=== PATIENT | female | born 1965 | race Caucasian/White ===

== ENCOUNTER 2016-10-22 20:56 | Emergency (ER) | payer MEDICARE ==
[~2016-10-22] VITALS: Ht 160 cm; Wt 68.0 kg
[2016-10-22 20:58] VITALS: BP 120/86; PULSE 102; RESP 16; TEMP 98; O2SAT 94
[2016-10-22] MEDS ORDERED: SULFAMETHOXAZOLE-TRIMETHOPRIM DS 800-160 MG TAB PO ONE (21:15)
[2016-10-22] MEDS ORDERED: CEPHALEXIN MONOHYDRATE 500 MG CAP PO ONE (21:15)
[2016-10-22] MEDS ORDERED: predniSONE 20 MG TAB PO ONE (21:15)
[2016-10-22] MEDS ORDERED: diphenhydrAMINE HCL 50 MG CAP PO ONE (21:15)
[2016-10-22] MEDS ORDERED: BACT800T5 PO (21:16)
[2016-10-22] MEDS ORDERED: CEPH-460 PO (21:16)
[2016-10-22] MEDS ORDERED: PRED-503 PO (21:16)
--- NOTE | 2016-10-22 21:21 | PD ---
HPI Chief Complaint: Bite or Sting Time Seen by Provider: 21:16 Travel History International Travel<30 days: No Contact w/Intl Traveler<30days: No Traveled to known affect area: No History of Present Illness HPI 51-year-old white female presents to emergency department for evaluation of a bee sting to the posterior right thigh. [place] She states that the area has become increasingly painful, red and swollen. She is concerned that she may be getting a secondary infection. 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 She also states that she has a decreased immune system. She denies any fever chills. No drainage. She states that she feels that she is up-to-date with immunizations. PFSH Past Medical History Narrative Medical Breast cancer survivor, MRSA Diminished Hearing: No Tetanus Vaccination: < 5 Years Influenza Vaccination: No ?: Not Past Surgical History Narrative Surgical Bilateral mastectomy, breast reconstruction, oophorectomy Social History Alcohol Use: Yes Tobacco Use: Yes Substance Use: No Allergies-Medications (Allergen,Severity, Reaction): Coded Allergies: Bactrim (Verified Allergy, Unknown, Rash, 10/22/16) Reported Meds & Prescriptions Reported Meds & Active Scripts Active Deltasone (Prednisone) 20 Mg Tab 20 Mg PO BID Bactrim DS (Sulfamethoxazole-Trimethoprim) 800-160 Mg Tab 1 Tab PO BID Keflex (Cephalexin) 500 Mg Cap 500 Mg PO Q6H Review of Systems Except as stated in HPI: all other systems reviewed are Neg General / Constitutional: No: Fever, Chills Eyes: No: Blurred Vision, Photophobia HENT: No: Vertigo, Lightheadedness Cardiovascular: No: Chest Pain or Discomfort, Palpitations Respiratory: No: Cough, Shortness of Breath Gastrointestinal: No: Nausea, Vomiting Genitourinary: No: Frequency, Dysuria Musculoskeletal: Positive: Edema, Pain Skin: Positive Rash, Positive Itching Physical Exam Narrative GENERAL: This is a well-nourished, well-developed patient, in no apparent distress. SKIN: Patient has a 6 x 6 area of erythema, warmth and induration to the posterior right thigh. Patient has no pointing or fluctuance. No lymphangitic streaking. HEENT: Normocephalic/atraumatic EYES: PERRL, EOMI, no discharge or injection. No scleral icterus. EARS: Clear NOSE: Nasal turbinates appear normal. THROAT: Mucosa pink and moist. Airway patent. NECK: Trachea midline. supple, moves head freely. LUNGS: Clear to auscultation. CV: Regular in rhythm. ABDOMEN: Soft nontender. EXT: No clubbing cyanosis or edema. Data Data Last Documented VS Vital Signs Date Time Temp Pulse Resp B/P Pulse Ox O2 Delivery O2 Flow Rate FiO2 10/22/16 21:02 16 10/22/16 20:58 98.0 102 120/86 94 Room Air Orders Cephalexin (Keflex) (10/22/16 21:15) Sulfamet-Trimeth Ds 800-160 Mg (Bactrim (10/22/16 21:15) Prednisone (Deltasone) (10/22/16 21:15) Diphenhydramine (Benadryl) (10/22/16 21:15) Clindamycin (Cleocin) (10/22/16 22:00) MDM Medical Decision Making Medical Screen Exam Complete: Yes Emergency Medical Condition: Yes Medical Record Reviewed: Yes Differential Diagnosis MDM: High Differential diagnoses: Abscess, folliculitis, cellulitis, lymphangitis, abrasion, contact dermatitis Narrative Course Patient appears have an insect bite with local reaction. The patient is concerned this may be getting secondarily infected. She'll be treated with 60 no aggressive prednisone, Benadryl 50 mg by mouth, Bactrim DS and Keflex 1 g by mouth. I suspect this is mostly a insect bite with local reaction with due to her history of skin infections and low immune system she'll be covered with antibiotics. This is insect bite with local reaction, cellulitis Now at time of discharge the patient now realizes that she is allergic to Bactrim/sulfa. The Bactrim is canceled and the patient is given clindamycin 300 mg by mouth. Diagnosis Primary Impression: iNSECT BITE WITH LOCAL REACTION Additional Impression: Cellulitis of right thigh Patient Instructions: General Instructions Additional Instructions: Rest. Daily wound care with soap and water. Warm compresses. Keflex, clindamycin and prednisone. Take 50 g of Benadryl 4 times daily for the next 1-2 days. Recheck with a primary care doctor in 48 hours. Return to the ER for any problems. Med/Other Pt SpecificInfo: Prescription(s) given, Wound Care Scripts Clindamycin (Cleocin)150 Mg [id number] Mg PO Q6H #56 CAP Prov:Phyllis Miller MD 10/22/16 Prednisone (Deltasone)20 Mg Tab20 Mg PO BID #6 TAB Prov:Phyllis Miller MD 10/22/16 Cephalexin (Keflex)500 Mg [id number] Mg PO Q6H #28 CAP Prov:Phyllis Miller MD 10/22/16 Disposition: 01 DISCHARGE HOME Condition: Stable Julio Cesar Sotelo Oct 22, 2016 21:21
[2016-10-22] MEDS ORDERED: CLIN150 PO (21:56)
[2016-10-22] MEDS ORDERED: CLINDAMYCIN 150 MG CAP PO ONE (22:00)
== END 2016-10-22 22:10 | disposition home or self-care (01) ==
LOC: NEPB 20:56
DX: T63.441A Toxic effect of venom of bees, accidental (unintentional), initial encounter (principal); L03.115 Cellulitis of right lower limb; W57.XXXA Bitten or stung by nonvenomous insect and other nonvenomous arthropods, initial encounter; Y92.832 Beach as the place of occurrence of the external cause; Z72.0 Tobacco use
CPT/HCPCS: 99282; J7512; Q0163

== ENCOUNTER 2016-11-05 07:38 | Day surgery (SDC) | payer MEDICARE ==
[~2016-11-05] VITALS: Ht 160 cm; Wt 65.9 kg
[~2016-11-05 07:38] MED LIST: CEPH-460 PO; CLIN150 PO; PRED-503 PO
[2016-11-05 07:56] VITALS: BP 122/75; PULSE 69; RESP 20; TEMP 98.1; O2SAT 98
[2016-11-05] MEDS ORDERED: FLUT1SPR5 EACH NARE (08:34)
[2016-11-05] MEDS ORDERED: ZYRT10CA PO (08:34)
[2016-11-05] MEDS ORDERED: ADDE30TA PO (08:34)
[2016-11-05] MEDS ORDERED: KLON2TAB PO (08:34)
[2016-11-05] MEDS ORDERED: LAMO100 PO (08:34)
[2016-11-05] MEDS ORDERED: ZOLO100T PO (08:34)
[2016-11-05] MEDS ORDERED: GABA100C4 PO (08:34)
[2016-11-05] MEDS ORDERED: SODIUM CHLOR 0.9% 1000 ML INJ 1,000 ML IV SCH (08:45)
[2016-11-05 09:43] LABS: AUTOMATED NEUTROPHIL # 6.1 TH/MM3 (1.8-7.7); BASOPHIL # 0.1 TH/MM3 (0-0.2); BASOPHIL % 0.6 % (0.0-2.0); EOSINOPHIL # 0.3 TH/MM3 (0-0.4); EOSINOPHIL % 2.8 % (0.0-4.0); HEMATOCRIT 41.6 % (35.0-46.0); HEMO FLAGS DIFF FINAL; LYMPH % 25.4 % (9.0-44.0); LYMPHOCYTE # 2.4 TH/MM3 (1.0-4.8); MEAN CELL VOLUME 95.8 FL (80.0-100.0); MEAN CORPUSCULAR HGB CONC 33.4 % (32.0-36.0); MONO % 5.9 % (0.0-8.0); NEUT % 65.3 % (16.0-70.0); PLATELET COUNT 241 TH/MM3 (150-450); RED BLOOD COUNT 4.34 MIL/MM3 (4.00-5.30); RED CELL DISTRIBUTION WIDTH 13.9 % (11.6-17.2); WHITE BLOOD COUNT 9.4 TH/MM3 (4.0-11.0)
[2016-11-05] MEDS ORDERED: LORazepam 2 MG/ML VIAL ONE (10:41)
[2016-11-05] MEDS ORDERED: MIDAZOLAM HCL 2 MG/2 ML VIAL ONE (10:52)
[2016-11-05 11:10] VITALS: BP 118/77; PULSE 59; RESP 18; TEMP 98; O2SAT 95
--- NOTE | 2016-11-05 11:14 | PD.RAD ---
Post Procedure Progress Note Pre Procedure Diagnosis: (1) Difficulty with speech (2) Blurred vision, bilateral Post Procedure Diagnosis: (1) Difficulty with speech (2) Blurred vision, bilateral Procedure Date: Nov 05, 2016 Supervising Radiologist: Paul Anne Anesthesia: Local, Conscious Sedation Plan of Activity Patient to Unit: ROPU Patient Condition: Good Additional Comments: LP completed without difficulty single puncture at L3/L4 23 cc of clear CSF removed See PACS Report for procedural detail/treatment Paul Anne MD Nov 05, 2016 11:13
[2016-11-05 12:45] LABS: GROSS BLOOD TUBE #1 0 (0); SUPERNATE COLOR TUBE #1 CLEAR (CLEAR); VOLUME TUBE # 1 4.7 ML
[2016-11-05 12:46] LABS: CSF LYMPHOCYTES 0 %; CSF NEUTROPHILS 0 %; GROSS BLOOD TUBE #2 0 (0); GROSS BLOOD TUBE #3 0 (0); GROSS BLOOD TUBE #4 0 (0); SUPERNATE COLOR TUBE #2 CLEAR (CLEAR); SUPERNATE COLOR TUBE #3 CLEAR (CLEAR); SUPERNATE COLOR TUBE #4 CLEAR (CLEAR); VOLUME TUBE # 2 5.8 ML; VOLUME TUBE # 3 5.2 ML; VOLUME TUBE # 4 6.9 ML; WBC TUBE #4 0 /MM3 (0-10)
[2016-11-05 13:25] VITALS: BP 114/60; PULSE 93; RESP 16; O2SAT 96
--- NOTE | 2016-11-05 16:20 | RADRPT ---
EXAM DATE/TIME: 11/05/2016 11:01 [facility] COMPARISON: No previous studies available for comparison. INDICATIONS : Patient with blurry vision, and difficulty speaking in need of lumbar puncture. MEDICAL HISTORY : Breast cancer PTSD Panick attachs ADD MS Spondylosis SURGICAL HISTORY : Double mastectomy Breast augmentation ENCOUNTER: Initial ACUITY: 1 year PAIN SCORE: 0/10 LUMBAR PUNCTURE TIME: 1052 hours FLUORO TIME: 0.25 minutes SEDATION TIME: 30 minutes ACCESS LEVEL: L3-4 FLUID: 23 cc of clear CSF was collected and sent to the laboratory for analysis. SEDATION: 1.) 2 mcg midazolam (Versed) IV 2.) 100 mg fentanyl (Sublimaze) IV PROCEDURE : 1. Fluoroscopic guided lumbar puncture. The risks, benefits and alternatives to the procedure were explained and verbal and written consent w as obtained. The site was prepped in sterile fashion. Full sterile technique was used, including ca p, mask, sterile gloves and gown and a large sterile sheet. Hand hygiene and 2% chlorhexidine and/or betadine/alcohol prep was utilized per protocol for cutaneous antisepsis. The skin and subcutaneous tissues were infiltrated with local anesthetic solution. With fluoroscopic guidance the lumbar thecal sac was punctured at the level above. The fluid describ ed above was removed without difficulty. The patient tolerated the procedure well and there were no complications. CONCLUSION: Uncomplicated fluoroscopically guided lumbar puncture. Paul Anne MD on November 05, 2016 at 16:19 Board Certified Radiologist. This report was verified electronically.
[2016-11-06 17:06] LABS: ALBUMIN SERUM 4540 mg/dL (3200 - 4800); IGG SERUM 732 mg/dL (767 - 1590); IGG/ALBUMIN CSF 0.08 (<=0.21); IGG/ALBUMIN SERUM 0.16 (<=0.40); OLIGOCLONAL BANDING CSF 7 bands (()); OLIGOCLONAL BANDING INTERPRET 0 bands (<4); OLIGOCLONAL BANDING SERUM 7 bands (())
[2016-11-07 16:49] LABS: LYME IGG IMMUNOBLOT CSF None Detected bands (None Detected); LYME IGM IMMUNOBLOT CSF None Detected bands (None Detected)
[2016-11-07 19:53] LABS: VDRL CSF NON-REACTIVE (())
[2016-11-08 11:37] LABS: CSF CRYPTOCOCCUS AG CONF ND (NOT DETECTD)
== END 2016-11-05 13:50 | disposition home or self-care (01) ==
LOC: HROP 07:38 → HRIP 07:48 → HROP 13:50
PROVIDERS: ATTEND Psychiatry & Neurology Neurology
DX: H53.8 Other visual disturbances (principal); G35 Multiple sclerosis; F43.10 Post-traumatic stress disorder, unspecified; M47.9 Spondylosis, unspecified; Z85.3 Personal history of malignant neoplasm of breast
CPT/HCPCS: 62270; 77003; 82040; 82042; 82784; 82945; 83873; 83916; 84157; 85025; 86403; 86592; 86618; 87015; 87070; 87102; 87116; 87205; 87206; 89051; 99152; 99153; J2060; J2250; J3010; J7030

== ENCOUNTER 2017-07-02 19:32 | Emergency (ER) | payer MEDICARE ==
[~2017-07-02] VITALS: Ht 160 cm; Wt 63.4 kg
[~2017-07-02 19:32] MED LIST changes: +ADDE30TA PO; -CEPH-460 PO; -CLIN150 PO; +FLUT1SPR5 EACH NARE; +GABA100C4 PO; +KLON2TAB PO; +LAMO100 PO; -PRED-503 PO; +ZOLO100T PO; +ZYRT10CA PO
[2017-07-02 19:40] VITALS: BP 166/93; PULSE 115; RESP 18; TEMP 98.8; O2SAT 95
[2017-07-02] MEDS ORDERED: CETI10 PO (19:54)
[2017-07-02] MEDS ORDERED: CALC1TAB12 PO (19:54)
[2017-07-02] MEDS ORDERED: MAG-TAB PO (19:54)
[2017-07-02] MEDS ORDERED: MAGN100T2 PO (19:54)
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
[2017-07-02] MEDS ORDERED: TETANUS/DIPHTHERIA TOXOID ADULT 0.5 ML VIAL IM ONE (20:30)
[2017-07-02] MEDS ORDERED: LIDOCAINE HCL 1% 50 ML VIAL INFIL ONE (20:30)
== END 2017-07-02 20:37 | disposition home or self-care (01) ==
LOC: PHEFT 19:32
DX: S81.812A Laceration without foreign body, left lower leg, initial encounter (principal); Y08.89XA Assault by other specified means, initial encounter; Z23 Encounter for immunization
CPT/HCPCS: 12002; 90471; 90714

== ENCOUNTER 2018-01-30 12:35 | Emergency (ER) | payer MEDICARE ==
[~2018-01-30] VITALS: Ht 160 cm; Wt 62.0 kg
[~2018-01-30 12:35] MED LIST changes: +CALC1TAB12 PO; +CETI10 PO; -FLUT1SPR5 EACH NARE; +MAG-TAB PO; -ZYRT10CA PO
[2018-01-30 12:38] VITALS: BP 137/92; PULSE 114; RESP 16; TEMP 98.9; O2SAT 98
--- NOTE | 2018-01-30 12:52 | PD ---
HPI Chief Complaint: General Weakness Time Seen by Provider: 12:52 Travel History International Travel<30 days: No Contact w/Intl Traveler<30days: No Traveled to known affect area: No History of Present Illness HPI Patient is 52 years old. She complains of palpitations for 1 week. She also describes difficulty with concentration. She feels as though she is "walking on egg shells." She thought it might have been allergies. She follows with ENT and has a right tympanostomy. She is taking Zyrtec and has done so for 3 years. She recently finished a course of antibiotics for urinary tract infection and acute otitis media. She recently started Cipro for sinusitis diagnosis. Last menstruation was 5 years ago. She states he just cannot concentrate. No urinary complaints. No change in medications other than the Cipro. No change in diet or lifestyle. No chest pain or shortness of breath. Patient has history of depression and anxiety. The patient drinks alcohol occasionally. She smokes 1 pack per day. PFSH Past Medical History Depression: Yes Cancer: Yes (breast) Cardiovascular Problems: No Diabetes: No Diminished Hearing: No Endocrine: No Genitourinary: No Hepatitis: No Hiatal Hernia: No Immune Disorder: No Musculoskeletal: Yes (djd) Neurologic: No Psychiatric: Yes (depression, anxiety) Reproductive: No Respiratory: No Immunizations Current: No Thyroid Disease: No Past Surgical History Abdominal Surgery: No AICD: No Cardiac Surgery: No Ear Surgery: No Endocrine Surgery: No Eye Surgery: No Genitourinary Surgery: No Gynecologic Surgery: Yes (ovaries, omentum) Joint Replacement: No Mastectomy: Yes (WITH RECONSTRUCTION) Oral Surgery: No Pacemaker: No Thoracic Surgery: Yes (double mastectomy) Other Surgery: Yes Social History Alcohol Use: Yes (OCC) Tobacco Use: Yes (1 PK) Substance Use: No Allergies-Medications (Allergen,Severity, Reaction): Coded Allergies: penicillin G (Unverified Allergy, Severe, rash, 01/30/18) "feels like body is on fire" sulfamethoxazole (Unverified Allergy, Severe, Rash, 01/30/18) "feels like my body is on fire" trimethoprim (Unverified Allergy, Severe, Rash, 01/30/18) "feels like my body is on fire" latex (Unverified Allergy, Intermediate, rash, 01/30/18) Reported Meds & Prescriptions Reported Meds & Active Scripts Active Reported Adderall (Amphetamine-Dextroamphetamine) 15 Mg Tab 15 Mg PO BID Avoid late evening doses. Space doses at least 4 to 6 hours if more than once/day dosing. Zyrtec (Cetirizine HCl) 10 Mg Capsule 10 Mg DAILY Lamictal (Lamotrigine) 100 Mg Tab 100 Mg PO DAILY Zoloft (Sertraline HCl) 100 Mg Tab 200 Mg PO DAILY Cipro (Ciprofloxacin HCl) 500 Mg Tab 500 Mg PO BID Review of Systems Except as stated in HPI: all other systems reviewed are Neg General / Constitutional: No: Fever Physical Exam Narrative GENERAL: 52-year-old female pleasant well-nourished well-developed no acute distress Vital Signs Date Time Temp Pulse Resp B/P (MAP) Pulse Ox O2 Delivery O2 Flow Rate FiO2 01/30/18 12:38 98.9 114 16 137/92 (107) 98 SKIN: Warm and dry. HEAD: Atraumatic. Normocephalic. EYES: Pupils equal and round. No scleral icterus. No injection or drainage. ENT: No nasal bleeding or discharge. Mucous membranes pink and moist. NECK: Trachea midline. No JVD. CARDIOVASCULAR: Regular rate and rhythm. RESPIRATORY: No accessory muscle use. Clear to auscultation. Breath sounds equal bilaterally. GASTROINTESTINAL: Abdomen soft, non-tender, nondistended. Hepatic and splenic margins not palpable. MUSCULOSKELETAL: Extremities without clubbing, cyanosis, or edema. No obvious deformities. NEUROLOGICAL: Awake and alert. No obvious cranial nerve deficits. Motor grossly within normal limits. Five out of 5 muscle strength in the arms and legs. Normal speech. PSYCHIATRIC: Appropriate mood and affect; insight and judgment normal. Data Data Last Documented VS Vital Signs Date Time Temp Pulse Resp B/P (MAP) Pulse Ox O2 Delivery O2 Flow Rate FiO2 01/30/18 13:05 98 Room Air 01/30/18 12:38 98.9 114 16 137/92 (107) Orders Orders Electrocardiogram (01/30/18 13:01) Complete Blood Count With Diff (01/30/18 13:01) Comprehensive Metabolic Panel (01/30/18 13:01) Troponin I (01/30/18 13:01) Thyroid Stimulating Hormone (01/30/18 13:01) Urinalysis - C+S If Indicated (01/30/18 13:01) Chest, Single Ap (01/30/18 13:01) Ct Brain W/O Iv Contrast(Rout) (01/30/18 13:01) Ecg Monitoring (01/30/18 13:01) Iv Access Insert/Monitor (01/30/18 13:01) Oximetry (01/30/18 13:01) Sodium Chloride 0.9% Flush (Ns Flush) (01/30/18 13:15) Sodium Chlor 0.9% 1000 Ml Inj (Ns 1000 M (01/30/18 13:01) Drug Screen, Random Urine (01/30/18 13:01) Ed Discharge Order (01/30/18 13:46) Labs Laboratory Tests Test 01/30/18 13:00 White Blood Count 8.4 TH/MM3 Red Blood Count 4.57 MIL/MM3 Hemoglobin 14.8 GM/DL Hematocrit 42.4 % Mean Corpuscular Volume 92.7 FL Mean Corpuscular Hemoglobin 32.3 PG Mean Corpuscular Hemoglobin Concent 34.8 % Red Cell Distribution Width 12.6 % Platelet Count 304 TH/MM3 Mean Platelet Volume 8.2 FL Neutrophils (%) (Auto) 62.4 % Lymphocytes (%) (Auto) 31.8 % Monocytes (%) (Auto) 4.3 % Eosinophils (%) (Auto) 0.8 % Basophils (%) (Auto) 0.7 % Neutrophils # (Auto) 5.1 TH/MM3 Lymphocytes # (Auto) 2.7 TH/MM3 Monocytes # (Auto) 0.4 TH/MM3 Eosinophils # (Auto) 0.1 TH/MM3 Basophils # (Auto) 0.1 TH/MM3 CBC Comment DIFF FINAL Differential Comment Urine Collection Type CLEAN CATCH Urine Color YELLOW Urine Turbidity CLEAR Urine pH 5.0 Urine Specific [place] LESS/EQUAL 1.005 Urine Protein NEG mg/dL Urine Glucose (UA) NEG mg/dL Urine Ketones NEG mg/dL Urine Occult Blood SMALL Urine Nitrite NEG Urine Bilirubin NEG Urine Urobilinogen 0.2 MG/DL Urine Leukocyte Esterase NEG Urine RBC 0-3 /hpf Urine Squamous Epithelial Cells 0-5 /hpf Microscopic Urinalysis Comment CULT NOT INDICATED Urine Collection Time 13:00 Blood Urea Nitrogen 15 MG/DL Creatinine 0.64 MG/DL Random Glucose 103 MG/DL Total Protein 7.7 GM/DL Albumin 4.2 GM/DL Calcium Level 9.5 MG/DL Alkaline Phosphatase 68 U/L Aspartate Amino Transf (AST/SGOT) 19 U/L Alanine Aminotransferase (ALT/SGPT) 25 U/L Total Bilirubin 0.4 MG/DL Sodium Level 137 MEQ/L Potassium Level 3.5 MEQ/L Chloride Level 105 MEQ/L Carbon Dioxide Level 24.3 MEQ/L Anion Gap 8 MEQ/L Estimat Glomerular Filtration Rate 98 ML/MIN Troponin I LESS THAN 0.02 NG/ML Thyroid Stimulating Hormone 3rd Gen 0.644 uIU/ML Urine Opiates Screen NEG Urine Barbiturates Screen NEG Urine Amphetamines Screen POS Urine Benzodiazepines Screen NEG Urine Cocaine Screen NEG Urine Cannabinoids Screen NEG MDM Medical Decision Making Medical Screen Exam Complete: Yes Emergency Medical Condition: Yes Medical Record Reviewed: Yes Differential Diagnosis Anemia, thyroid disease, UTI, medication side effect, somatic symptoms, depression/anxiety Narrative Course CBC & BMP Diagram 01/30/18 13:00 Total Protein 7.7, Albumin 4.2, Calcium Level 9.5, Alkaline Phosphatase 68, Aspartate Amino Transf (AST/SGOT) 19, Alanine Aminotransferase (ALT/SGPT) 25, Total Bilirubin 0.[address] 01/30/18 1301 Signed Impressions: CONCLUSION: 1. No acute intracranial abnormality. Chest X-Ray 01/30/18 1301 Signed Impressions: CONCLUSION: No active disease. EKG shows a sinus rhythm with a rate of 99, no ischemic injury pattern or preexcitation pattern The patient is resting comfortably and feels better, is alert and in no distress. The patients results and examination findings were discussed. The repeat examination is unremarkable and benign. The history, exam, diagnostic testing, and current condition do not suggest any significant pathology to warrant further testing, continued ED treatment, admission, or surgical evaluation at this point. The vital signs have been stable. The patient does not have uncontrollable pain, intractable vomiting, or other significant symptoms. The patient's condition is stable and appropriate for discharge. The patient will pursue further outpatient evaluation with a primary care physician or other designated or consulting physician as indicated in the discharge instructions. The patient expressed understanding and was agreeable with this plan. Diagnosis Primary Impression: Palpitations Additional Impression: Confusion Referrals: Primary Care Physician call for appointment Med/Other Pt SpecificInfo: No Change to Meds Disposition: DISCHARGE HOME Condition: Stable Paul Weiner MD January 30, 2018 12:52
[2018-01-30] MEDS ORDERED: CIPR-9 PO (12:58)
[2018-01-30] MEDS ORDERED: CETI10CA3 (12:58)
[2018-01-30] MEDS ORDERED: ADDE15TA PO (12:58)
[2018-01-30] MEDS ORDERED: ZOLO100T PO (12:58)
[2018-01-30] MEDS ORDERED: LAMO100 PO (12:58)
[2018-01-30] MEDS ORDERED: SODIUM CHLOR 0.9% 1000 ML INJ 1,000 ML IV SCH (13:01)
[2018-01-30 13:05] VITALS: O2SAT 98
[2018-01-30 13:13] LABS: BILIRUBIN, URINE NEG (NEG); BLOOD, URINE SMALL (NEG); GLUCOSE,URINE NEG (NEG); KETONE, URINE NEG (NEG); NITRITE,URINE NEG (NEG); URINE COLOR YELLOW (YELLW/STRAW); URINE LEUKOCYTE ESTERASE NEG (NEG)
[2018-01-30 13:15] LABS: AUTOMATED NEUTROPHIL # 5.1 TH/MM3 (1.8-7.7); BASOPHIL # 0.1 TH/MM3 (0-0.2); BASOPHIL % 0.7 % (0.0-2.0); EOSINOPHIL # 0.1 TH/MM3 (0-0.4); EOSINOPHIL % 0.8 % (0.0-4.0); HEMATOCRIT 42.4 % (35.0-46.0); HEMOGLOBIN 14.8 GM/DL (11.6-15.3); LYMPH % 31.8 % (9.0-44.0); LYMPHOCYTE # 2.7 TH/MM3 (1.0-4.8); MEAN CELL VOLUME 92.7 FL (80.0-100.0); MEAN CORPUSCULAR HEMOGLOBIN 32.3 PG (27.0-34.0); MEAN CORPUSCULAR HGB CONC 34.8 % (32.0-36.0); MEAN PLATELET VOLUME 8.2 FL (7.0-11.0); MONO % 4.3 % (0.0-8.0); MONOCYTE # 0.4 TH/MM3 (0-0.9); NEUT % 62.4 % (16.0-70.0); PLATELET COUNT 304 TH/MM3 (150-450); RED BLOOD COUNT 4.57 MIL/MM3 (4.00-5.30); RED CELL DISTRIBUTION WIDTH 12.6 % (11.6-17.2); WHITE BLOOD COUNT 8.4 TH/MM3 (4.0-11.0)
[2018-01-30] MEDS ORDERED: SODIUM CHLORIDE 0.9% FLUSH 10 ML FLUSH IV FLUSH PRN (13:15)
[2018-01-30 13:20] LABS: RBC, URINE 0-3 /hpf (0-3); SQUAMOUS EPITHELIAL CELL URINE 0-5 /hpf (0-5)
[2018-01-30 13:21] LABS: CHLORIDE 105 MEQ/L (98-107); SODIUM (NA) 137 MEQ/L (136-145)
--- NOTE | 2018-01-30 13:23 | RADRPT ---
EXAM DATE: 01/30/2018 1:17 PM EDT AGE/SEX: 52 years / Female INDICATIONS: Heart palpitations. CLINICAL DATA: This is the patient's initial encounter. Patient reports that signs and symptoms have been present for 1 week and indicates a pain score of 0/10. MEDICAL/SURGICAL HISTORY: Carcinoma, breast. Fibroids. Mastectomy, bilateral. Ovaries removed. COMPARISON: No prior [facility] exams available for comparison. FINDINGS: A single AP view of the chest demonstrates the lungs to be symmetrically aerated without evidence of mass, infiltrate or effusion. The cardiomediastinal contours are unremarkable. Osseous structures a re intact. Previous breast augmentation. CONCLUSION: No active disease. Electronically signed by: Julio Cesar Montana MD 01/30/2018 1:21 PM EDT
[2018-01-30 13:24] LABS: CALCIUM 9.5 MG/DL (8.5-10.1)
[2018-01-30 13:25] LABS: ALBUMIN 4.2 GM/DL (3.4-5.0); BICARBONATE 24.3 MEQ/L (21.0-32.0); BLOOD UREA NITROGEN 15 MG/DL (7-18); GLUCOSE,RANDOM 103 MG/DL (74-106)
[2018-01-30 13:28] LABS: ALT (GPT) 25 U/L (10-53); AST (GOT) 19 U/L (15-37); CREATININE 0.64 MG/DL (0.50-1.00); GLOMERULAR FILTRATION RATE 98 ML/MIN (>89)
--- NOTE | 2018-01-30 13:29 | RADRPT ---
EXAM DATE: 01/30/2018 1:25 PM EDT AGE/SEX: 52 years / Female INDICATIONS: Altered mental status. Disoriented. CLINICAL DATA: This is the patient's initial encounter. Patient reports that signs and symptoms have been present for 1 week and indicates a pain score of 0/10. MEDICAL/SURGICAL HISTORY: Carcinoma, breast. Mastectomy, bilateral. RADIATION DOSE: 51.41 CTDI (mGy) COMPARISON: No prior [facility] exams available for comparison. TECHNIQUE: CT of the head without contrast. Using automated exposure control and adjustment of the mA and/or kV according to patient size, radiation dose was kept as low as reasonably achievable to ob tain optimal diagnostic quality images. FINDINGS: Cerebrum: The ventricles are normal for age. No evidence of midline shift, mass lesion, hemorrhage o r acute infarction. No extraaxial fluid collections are seen. Posterior Fossa: The cerebellum and brainstem are intact. The 4th ventricle is midline. The cerebe llopontine angle is unremarkable. Extracranial: The visualized portion of the orbits is intact. Skull: The calvaria is intact. No evidence of skull fracture. CONCLUSION: 1. No acute intracranial abnormality. Electronically signed by: Clark Delgado MD 01/30/2018 1:28 PM EDT
[2018-01-30 13:30] LABS: TOTAL BILIRUBIN ADULT 0.4 MG/DL (0.2-1.0); TOTAL PROTEIN 7.7 GM/DL (6.4-8.2)
[2018-01-30 13:31] LABS: ALKALINE PHOSPHATASE 68 U/L (45-117)
[2018-01-30 13:33] LABS: TROPONIN I LESS THAN 0.02 NG/ML (0.02-0.05)
--- NOTE | 2018-01-31 18:05 | EKG ---
Date Performed: 01/30/2018 Time Performed: 12:47:00 PTAGE: 52 years EKG: Sinus rhythm POSSIBLE LEFT ATRIAL ENLARGEMENT POSSIBLE LEFT VENTRICULAR HYPERTROPHY POSSIBLE SEPTAL MYOCARDIAL IN FARCTION ABNORMAL ECG NO PREVIOUS TRACING DOCTOR: Courtney Sarkar Interpretating Date/Time 01/31/2018 17:59:07
== END 2018-01-30 14:15 | disposition home or self-care (01) ==
LOC: PHED 12:35
DX: R00.2 Palpitations (principal); R41.0 Disorientation, unspecified; R94.31 Abnormal electrocardiogram [ECG] [EKG]; F17.210 Nicotine dependence, cigarettes, uncomplicated; Z88.0 Allergy status to penicillin; Z88.2 Allergy status to sulfonamides; Z79.899 Other long term (current) drug therapy
CPT/HCPCS: 70450; 71045; 80053; 80307; 81001; 84443; 84484; 85025; 93005; 96360; 99285; J7030